=== PATIENT | male | born 1955 | race Caucasian/White ===

== ENCOUNTER 2023-02-28 13:35 | Outpatient (CLI) | payer MEDICARE, BC ==
[2023-02-28 16:00] LABS: Hemoglobin 14.3 g/dL (13.5-17.5)
[2023-02-28 16:03] LABS: Anion Gap 13 mmol/L (10-20); BUN (Urea Nitrogen) 21 mg/dL (8.4-25.7); Calc. Creatinine Clearance 0 mL/min (70-130); Calcium 9.1 mg/dL (7.8-10.44); Carbon Dioxide 24 mmol/L (23-31); Chloride 105 mmol/L (98-107); Estimated GFR 66; Glucose 102 mg/dL (80-115); Potassium 4.4 mmol/L (3.5-5.1); Sodium 138 mmol/L (136-145)
== END 2023-02-28 13:36 | disposition home or self-care (01) ==
LOC: LABBT 13:35
PROVIDERS: ATTEND Otolaryngology Plastic Surgery within the Head & Neck
DX: Z01.818 Encounter for other preprocedural examination (principal); J38.1 Polyp of vocal cord and larynx
CPT/HCPCS: 80048; 85014; 85018; 93005; 93010

== ENCOUNTER 2023-03-02 06:26 | Day surgery (SDC) | payer MEDICARE, BC ==
[2023-02-28 14:14] VITALS: BMI 36.0
[2023-03-02] MEDS ORDERED: EPINEPHrine 1 MG/ML AMP ONE (08:13)
[2023-03-02] MEDS ORDERED: fentaNYL PF 100 MCG/2 ML SYRINGE ONE (08:18)
[2023-03-02] MEDS ORDERED: Midazolam HCl 2 mg/2 ml Vial ONE (08:18)
[2023-03-02] MEDS ORDERED: Ondansetron PF 4 MG/2 ML Vial ONE (08:28)
[2023-03-02] MEDS ORDERED: Succinylcholine 200 MG/10 ml SYRINGE FS ONE (08:28)
[2023-03-02] MEDS ORDERED: Dexamethasone 20 MG/5 ML VIAL ONE (08:28)
[2023-03-02] MEDS ORDERED: PROPOFOL 200 MG/20 ML VIAL ONE (08:28)
[2023-03-02] MEDS ORDERED: Lidocaine 1% PF 5 ML VIAL ONE (08:28)
== END 2023-03-02 10:48 | disposition home or self-care (01) ==
LOC: SDC 06:26
PROVIDERS: ATTEND Otolaryngology Plastic Surgery within the Head & Neck
PROC: 0CBS8ZX Excision of Larynx, Via Natural or Artificial Opening Endoscopic, Diagnostic (ICD-10-PCS; principal; 2023-03-02)
DX: D14.1 Benign neoplasm of larynx (principal); I10 Essential (primary) hypertension; E78.00 Pure hypercholesterolemia, unspecified
CPT/HCPCS: 88305; J0171; J1100; J2250; J2405; J2704